=== PATIENT | female | born 1975 | race Caucasian/White ===

== ENCOUNTER 2018-01-12 19:30 | Emergency (ER) | payer OTHER ==
[2018-01-12 19:45] VITALS: BP 115/75
--- NOTE | 2018-01-12 19:58 | UC ---
Ear Complaint HPI - HPI Summary HPI Summary: left ear feels clogged and has decreased hearing - History of Current Complaint Chief Complaint: UCEar Stated Complaint: LEFT EAR CLOGGED Time Seen by Provider: 01/12/18 19:36 Hx Obtained From: Patient Hx Last Menstrual Period: 1 WEEK AGO ?: No Onset/Duration: Gradual Onset, Still Present Severity Currently: Mild Pain Intensity: 2 Pain Scale Used: 0-10 Numeric Associated Signs/Symptoms: Positive: Hearing Loss - Allergies/Home Medications Allergies/Adverse Reactions: Allergies Allergy/AdvReac Type Severity Reaction Status Date / Time codeine Allergy Severe Rash Verified 01/12/18 19:46 prochlorperazine Allergy Severe DYSTONIC Verified 01/12/18 19:45 [From Compazine] REACTION diphenhydramine AdvReac "MAKES ME Verified 01/12/18 19:46 [From Benadryl] HYPER" Home Medications: Home Medications Ethynodiol D-Ethinyl Estradiol [Zovia 1/35E 1-35 mg-Mcg] 1 tab PO 01/12/18 [ History] Pantoprazole TAB (NF) [Protonix TAB (NF)] 20 mg PO DAILY 01/12/18 [History Confirmed 01/12/18] Spironolactone TAB* [Aldactone TAB*] mg PO DAILY 01/12/18 [History] PMH/Surg Hx/FS Hx/Imm Hx GI/ History: Gastroesophageal Reflux - Surgical History Surgical History: Yes Surgery Procedure, Year, and Place: 2 LAPAROSCOPIES, 2 ANKLE SURGERIES - Family History Known Family History: Positive: None - Social History Occupation: Employed Full-time Lives: With Family Alcohol Use: Occasionally Substance Use Type: None Smoking Status (MU): Never Smoked Tobacco Review of Systems Constitutional: Negative Skin: Negative Eyes: Negative ENT: Ear Ache - decrease hearing left ear Respiratory: Negative Cardiovascular: Negative Gastrointestinal: Negative Genitourinary: Negative Motor: Negative Neurovascular: Negative Musculoskeletal: Negative Neurological: Negative Psychological: Negative Is Patient Immunocompromised?: No All Other Systems Reviewed And Are Negative: Yes Physical Exam Triage Information Reviewed: Yes Appearance: Well-Appearing, No Pain Distress, Well-Nourished Vital Signs: Initial Vital Signs Temp 97.2 F 01/12/18 19:42 Pulse 61 01/12/18 19:42 Resp 16 01/12/18 19:42 BP 115/75 01/12/18 19:42 Pulse Ox 99 01/12/18 19:42 Vital Signs Reviewed: Yes Eye Exam: Normal Eyes: Positive: Conjunctiva Clear ENT Exam: Normal ENT: Positive: Normal ENT inspection, Hearing grossly normal, Pharynx normal, Pharyngeal erythema, TMs normal - right, Uvula midline, Other - left tm cerumen impaction. Negative: Tonsillar swelling, Tonsillar exudate, Trismus, Muffled voice, Hoarse voice, Dental tenderness, Sinus tenderness Dental Exam: Normal Neck exam: Normal Neck: Positive: Supple, Nontender, No Lymphadenopathy Respiratory Exam: Normal Respiratory: Positive: Chest non-tender, No respiratory distress, No accessory muscle use Cardiovascular Exam: Normal Cardiovascular: Positive: RRR, Pulses Normal, Brisk Capillary Refill Musculoskeletal Exam: Normal Musculoskeletal: Positive: Strength Intact, ROM Intact, No Edema Neurological Exam: Normal Neurological: Positive: Alert, Muscle Tone Normal Psychological Exam: Normal Psychological: Positive: Normal Response To Family Skin Exam: Normal Ear Complaint Course/Dx - Course Course Of Treatment: irragate ear, follow with pcp prn - Differential Dx/Diagnosis Provider Diagnoses: left ear cerumen impaction-resolved Discharge - Sign-Out/Discharge Documenting (check all that apply): Patient Departure - Discharge Plan Condition: Stable Disposition: HOME Patient Education Materials: Cerumen Impaction (ED) Referrals: No Primary Care Phys,NOPCP [Primary Care Provider] - Additional Instructions: follow with your pcp or retuen as needed - Billing Disposition and Condition Condition: STABLE Disposition: Home
== END 2018-01-12 20:25 | disposition home or self-care (01) ==
LOC: UCEAST 19:30
DX: H61.22 Impacted cerumen, left ear (principal); K21.9 Gastro-esophageal reflux disease without esophagitis; Z88.5 Allergy status to narcotic agent; Z88.8 Allergy status to other drugs, medicaments and biological substances
CPT/HCPCS: 99203; G0463